=== PATIENT | male | born 1985 ===

== ENCOUNTER 2024-10-17 07:51 | Outpatient (CLI) | payer BC ==
[~2024-10-17] VITALS: Ht 175.3 cm; Wt 127.0 kg
--- NOTE | 2024-10-24 14:21 | DVHSR ---
APPROVED REPORT Exam: Nuclear Stress Test Indication: Chest pain Ht: 5 ft 9 in Wt: 280 lbs BSA: 2.38 m2 HR: 80 bpm BP: 111/78 mmHg BMI: 41.34 Rhythm: NSR Medical History Medical History: HTN Medications: None Allergies: No known drug allergies Cardiac Risk Factors: Family Hx of CAD Stress Test Details Stress Test: Exercise stress testing was performed using a Ge protocol. HR Resting HR: 80 bpmMax Heart Rate (APMHR): 181.153266 bpm Max HR Achieved: 150 bpmTarget HR (85% APMHR): 153.769724 bpm % of APMHR: 82.87 Recovery HR: 113 bpm HR response to stress: Normal HR response to stress BP Resting BP: 111/78 mmHg Max BP: 210/90 mmHg Recovery BP: 117/64 mmHg BP response to stress: Exaggerated response ECG Resting ECG: Sinus Rhythm Stress ECG: Sinus Tachycardia Arrhythmia: None Recovery ECG: Sinus Tachycardia Clinical Reason for Termination: Fatigue, Elevated BP Stress Symptoms: Fatigue, Chest pain Exercise duration: 10 min 30 sec Exercise capacity: 11.1 METs Stress ECG Conclusion NON ISCHEMIC CLINICAL RESPONSE NON ISCHEMIC CLINICAL RESPONSE EF >55% NON ISCHEMIC CARDIOLITE STRESS IMAGING LESS THAN 10% LIKELIHOOD FOR STRESS INDUCED ISCHEMIC NM EXAM: Myocardial Perfusion REST/STRESS Imaging Protocol: Rest Tc-99m/Stress Tc-99m 1 day Resting Data Rest SPECT myocardial perfusion imaging was performed in supine position 30 minutes following the int ravenous injection of 10.79 mCi of Tc-99m Sestamibi. Time of rest injection: 806 Date: 10/17/2024 Time of rest imagin Date: 10/17/2024 Administration Route: IV Administration Site: Left AC Exercise Stress At peak stress, the patient was injected intravenously with 32.8 mCi of Tc-99m Sestamibi. Time of stress injection: 917 Date: 10/17/2024 Time of stress imagin Date: 10/17/2024 Administration Route: IV Administration Site: Left AC Heart Rate at time of stress injection: 146 bpm. Patient continued to exercise for 1 minute(s). Gated Stress SPECT was performed 15 minutes after stress injection. The images were gated to evaluate regional wall motion and calculate left ventricular ejection fracti on. Comments Cardiolite injection at 9 minutes, 56 seconds into test. Nuclear Conclusion NON ISCHEMIC CLINICAL RESPONSE NON ISCHEMIC CLINICAL RESPONSE EF >55% NON ISCHEMIC CARDIOLITE STRESS IMAGING LESS THAN 10% LIKELIHOOD FOR STRESS INDUCED ISCHEMIC
== END 2024-10-17 17:00 | disposition home or self-care (01) ==
LOC: Rad HDHVI 07:51
PROVIDERS: ATTEND Internal Medicine Cardiovascular Disease
DX: R00.0 Tachycardia, unspecified (principal); R07.89 Other chest pain; I10 Essential (primary) hypertension
CPT/HCPCS: 78452; 93017; A9500; 96374

== ENCOUNTER 2024-10-24 07:56 | Outpatient (CLI) | payer BC ==
--- NOTE | 2024-10-24 15:36 | DVHSR ---
APPROVED REPORT EXAM: Two-dimensional and M-mode echocardiogram with Doppler and color Doppler. DIMENSIONS LVDd4.8 (3.8-5.7cm)LA (2D)4.0 (1.9-4.0cm)Aortic Root3.1 (2.0-3.7cm) LVDs3.1 (2.5-4.0cm)LA (MM) (1.9-4.0cm)Aortic Cusp Exc2.0 (1.5-2.0cm) EF (%) 63.0 (55-70%)Rt. Atrium4.3 (1.9-4.0cm)Asc. Aorta cm IVSd1.1 (0.7-1.1cm)RV (D) (1.8-2.4cm) PWd1.0 (0.7-1.1cm) Mitral Valve MitralMitral Stenosis E wave0.90m/sMV Mean GR.mmHg A wave0.80m/sMV Peak GR.mmHg E/A ratio1.12D MVAcm2 Aortic Valve Aortic ValveAortic Stenosis V11.00m/Mohit Mean GR.3mmHg V21.10m/Mohit Peak GR.5mmHg LVOT Diameter2.4 (1.8-2.4cm)Doppler AVA4.11cm2 Pulmonic Valve V20.70m/s LEFT VENTRICLE The left ventricle is normal size. The left ventricle is normal in structure and function. The Ejection Fraction is within normal limits. RIGHT VENTRICLE The right ventricle is normal size. ATRIA The left atrial size is normal. The right atrium is mildly enlarged. The interatrial septum is intact with no evidence for an atrial septal defect. MITRAL VALVE The mitral valve is normal in structure and function. There is no mitral valve regurgitation noted. PULMONIC VALVE The pulmonic valve is not well visualized. TRICUSPID VALVE The tricuspid valve is grossly normal. There is trace tricuspid regurgitation. AORTIC VALVE The aortic valve opens well. No aortic regurgitation is present. GREAT VESSELS The aortic root is normal size. PERICARDIAL EFFUSION There is no pericardial effusion. Conclusion EF >55% HANY
== END 2024-10-24 17:00 | disposition home or self-care (01) ==
LOC: Rad HDHVI 07:56
PROVIDERS: ATTEND Internal Medicine Cardiovascular Disease
DX: I51.7 Cardiomegaly (principal); R07.89 Other chest pain
CPT/HCPCS: 93306

== ENCOUNTER 2024-10-31 08:32 | Outpatient (CLI) | payer BC ==
[2024-10-31 08:52] VITALS: BP 135/81; PULSE 72; RESP 16; O2SAT 96
[2024-10-31] MEDS ORDERED: IOHEXOL 350 MG/ML 100ML IJ ONE (08:56)
[2024-10-31 09:06] VITALS: BP 133/90; PULSE 72; RESP 16; O2SAT 96
--- NOTE | 2024-10-31 12:45 | DVH ---
CTA Chest with intravenous contrast INDICATION: R/O PE COMPARISON: None TECHNIQUE: Multidetector spiral CTA of the chest was performed of the chest with 100 cc of omnipaque 300 intravenous contrast. PULMONARY ANGIOGRAPHY PROTOCOL was utilized using a bolus-tracking techniqu e centered on the main pulmonary artery. Coronal and sagittal multiplanar and MIP reformats were perf ormed. Radiation Dose : 1. Chest: CTDI volume is 29.85 mGy. Dose-length product is 1169.8 mGy*cm The dose indicators for CT are the volume Computed Tomography (CT) Dose Index (CTDIvol) and the Dose Length Product (DLP), and are measured in units of mGy and mGy-cm, respectively. These indicators are not patient dose, but values generated from the CT scanner acquisition factors. The report includes radiation exposure data for exposures received during this examination. FINDINGS: Pulmonary artery: No central, lobar or proximal segmental pulmonary embolus. Lower neck: Unremarkable thyroid. Lungs: No suspicious pulmonary nodule. No focal airspace disease. Central airways: Patent. Pleura: No pneumothorax. No pleural effusions. Heart/Vascular Structures: The heart is normal in size. No pericardial effusion. Thoracic aorta is no rmal in caliber. No aneurysm or dissection. Lymph Nodes: No mediastinal or hilar lymphadenopathy. Esophagus:Grossly unremarkable. Musculoskeletal: Unremarkable. Body wall: Unremarkable. Upper abdomen: Enlarged spleen measuring 13.1 cm. IMPRESSION: 1. No evidence of pulmonary embolism. 2. Splenomegaly. HS:Y
== END 2024-10-31 17:00 | disposition home or self-care (01) ==
LOC: Rad HDHVI 08:32
PROVIDERS: ATTEND Internal Medicine Cardiovascular Disease
DX: R07.9 Chest pain, unspecified (principal); R16.1 Splenomegaly, not elsewhere classified
CPT/HCPCS: 71275; G0463; Q9967